=== PATIENT | female | born 1975 | race Caucasian/White ===

== ENCOUNTER 2024-06-29 18:15 | Emergency (ER) | payer BC ==
--- NOTE | 2024-06-29 20:00 | ED Physician Documentation ---
History of Present Illness - Stated complaint Stated Complaint: C+/SOA/CONGESTION/BODY ACHES - Chief complaint Chief Complaint: General - History obtained from History obtained from: Patient - Additonal information Additional information: Patient is a 49-year-old female with past medical history of celiac disease and asthma presents to the emergency department with generalized bodyaches fevers at home and testing positive for COVID. Patient is concerned due to her generalized bodyaches and shortness of breath. She tried naproxen at home and nasal decongestant without relief and came to the emergency department. Patient concerned as she has had COVID before and her symptoms of bodyaches and fatigue are worse than her previous episodes of COVID. She denies any wheezing she has tried her inhaler today with no relief. She has no productive cough no chest pain she is reporting symptoms of shortness of breath. PD PAST MEDICAL HISTORY - Past Medical History Past Medical History: No - Past Surgical History Past Surgical History: No - Present Medications Home Medications: Ambulatory Orders Medication Instructions Recorded Confirmed Albuterol Sulf [Ventolin Hfa 1 - 2 puffs INH Q4HR PRN #1 each 06/29/24 Inhaler] Nirmatrelvir/Ritonavir [Paxlovid 1 each PO DAILY 7 Days #7 tab 06/29/24 150-100 mg Dose Pack] - Allergies Allergies/Adverse Reactions: Allergies Allergy/AdvReac Type Severity Reaction Status Date / Time aspirin Allergy Emesis Verified 06/29/24 18:20 Penicillins Allergy Anaphylaxis Verified 06/29/24 18:20 guaifenesin AdvReac Emesis Verified 06/29/24 20:09 ibuprofen AdvReac Emesis Verified 06/29/24 20:09 pseudoephedrine AdvReac Emesis Verified 06/29/24 20:09 [From Sudafed] - Social History Does the pt smoke?: No Smoking Status: Never smoker Does the pt drink ETOH?: No Does the pt have substance abuse?: No - Immunizations Immunizations are current?: Yes - POLST Patient has POLST: No PD ED PE NORMAL - Vitals Vital signs reviewed: Yes - General General: Alert and oriented X 3 - HEENT HEENT: Atraumatic - Neck Neck: Supple, no meningeal sign - Cardiac Cardiac: RRR, No murmur, No gallop, No rub - Respiratory Respiratory: No respiratory distress, Clear bilaterally - Abdomen Abdomen: Normal bowel sounds - Derm Derm: Normal color, Warm and dry, No rash - Extremities Extremities: No deformity - Neuro Neuro: Alert and oriented X 3 Eye Opening: Spontaneous Motor: Obeys Commands Verbal: Oriented GCS Score: 15 - Psych Psych: Normal mood Results - Vitals Vitals: Vital Signs - 24 hr 06/29/24 06/29/24 06/29/24 18:21 20:10 20:20 Temperature 39.2 C H Heart Rate 100 108 H 112 H Respiratory 22 16 20 Rate Blood Pressure 140/77 H 145/86 H O2 Saturation 98 98 06/29/24 06/29/24 20:36 21:00 Temperature 39.3 C H 37.8 C Heart Rate 103 H Respiratory Rate Blood Pressure 140/78 H O2 Saturation 94 Oxygen O2 Source Room air - Rads (name of study) chest x-ray Relevant Findings:: EMP independent interpretation of test PD Medical Decision Making - ED course Complexity details: reviewed old records, reviewed results, re-evaluated patient ED course: Patient patient is a 49-year-old female presenting to the emergency department with bodyaches fever cough congestion shortness of breath. Patient's symptoms started this morning she took her temperature at home was 103. She had a positive COVID test here at home. Patient denies any medications helping at home including naproxen and congestion medication. Patient here febrile and tachycardic on arrival. Patient has clear breath sounds on auscultation normal cardiac sounds on auscultation. No lower leg swelling pulses intact in upper and lower extremities. Chest x-ray obtained here in emergency department patient given Tylenol and breathing treatment here in emergency department. She is feeling significantly better after these medications. Paxlovid sent to patient's pharmacy as she has a history of asthma and history of celiac disease as well as morbid obesity so she meets criteria. Chest x-ray shows no acute cardiopulmonary findings. Instructed patient to follow-up with PCP in outpatient setting to ensure resolution of symptoms. Tachycardia and fever resolved here in emergency department on reevaluation she is feeling significantly better. Departure - Departure Disposition: 01 Home, Self Care Clinical Impression: COVID, Viral URI with cough Condition: Good Prescriptions: Albuterol Sulf [Ventolin Hfa Inhaler] 1 - 2 puffs INH Q4HR PRN #1 each PRN Reason: Shortness Of Air/Wheezing Nirmatrelvir/Ritonavir [Paxlovid 150-100 mg Dose Pack] 1 each PO DAILY 7 Days #7 tab Comments: You were seen here in the emergency department for your cough congestion shortness of breath your workup. Was reassuring continue to take Tylenol 1000 mg every 8 hours for symptoms at home I have sent Paxlovid to your pharmacy. You have been given a refill for your inhaler here in the emergency department. Return with any wheezing persistent cough persistent fevers despite Tylenol treatment and follow-up with your PCP in 2 weeks to ensure resolution of symptoms. If you develop any leg swelling severe chest pain or any other new or worsening symptoms return immediately to the emergency department. Forms: PCP List Discharge Date/Time: 06/29/24 21:40
[2024-06-29] MEDS: ACETAMINOPHEN 500 MG TABLET PO STA (20:14)
[2024-06-29] MEDS: ALBUTEROL 1 PUFF INH STA (20:20)
--- NOTE | 2024-06-29 21:18 | XRAY Report ---
PROCEDURE: Chest 1V INDICATIONS: sob TECHNIQUE: One view of the chest was acquired. COMPARISON: None. FINDINGS: Surgical changes and devices: None. Lungs and pleura: No pleural effusions or pneumothorax. Lungs are clear. Mediastinum: Mediastinal contours appear normal. Heart size is normal. Bones and chest wall: No suspicious bony lesions. Overlying soft tissues appear unremarkable. IMPRESSION: No acute cardiopulmonary process. Reviewed by: Nain Ramos MD on 06/29/2024 9:16 PM PDT Approved by: Nain Ramos MD on 06/29/2024 9:16 PM PDT Station ID: [id number]
[2024-06-29 21:19] VITALS: BP 140/78; O2SAT 94
== END 2024-06-29 21:40 | disposition home or self-care (01) ==
LOC: ED 18:15
DX: U07.1 COVID-19 (principal); J06.9 Acute upper respiratory infection, unspecified
CPT/HCPCS: 71045; 94640; 99283; A9270